=== PATIENT | female | born 1940 | race Caucasian/White ===

== ENCOUNTER 2022-10-25 14:48 | Inpatient (IN) | payer MEDICARE, SELFPAY ==
[2022-10-25 15:17] VITALS: BP 115/74; PULSE 78; RESP 16; TEMP 37; O2SAT 97; BMI 18.6
--- NOTE | 2022-10-25 16:14 | CASEMGMT ---
Social Work Met with patient to complete initial assessment. Son and DIL present and pt agreeable for them to remain. Introduced self and role. Verified/updated contacts. Discussed code status and MOLST form. Pt wishes to be full code. MOLST placed in Dr folder. Dtr to bring in copies of advanced directives. Educated to [facility] insurance and continued stay is not guaranteed with each review. Pt's goal is to return home alone at [facility]. SW to continue to follow for DC planning. Cookie Priest, CRUSHER MACHINE OPERATOR TELETYPE TECHNICIAN
[2022-10-25] MEDS: APIXABAN 2.5 MG TABLET (WCH) PO (17:41)
[2022-10-25] MEDS: Acetaminophen 500 MG Tablet 1000 MG PO ×2 (17:48→23:10)
[2022-10-25] MEDS: oxyCODONE 5 MG Tablet PO (17:49)
[2022-10-25 19:05] VITALS: PULSE 75; RESP 16; O2SAT 97
[2022-10-25] MEDS: Ipratropium/Albuterol Sulfate 3 ML AMPUL.NEB INHALATION (19:05)
--- NOTE | 2022-10-25 19:53 | HP.PCM_ITS ---
HPI - General General Date of Admission: 10/25/22 Date of Service: 10/25/22 Chief Complaint: Here for rehabilitation. HPI Narrative PATY FERRER, is a 82 Female who presents with followin10/09/2022 Trimming trees, fell off ladder, pain 10 out of 10. 10/09/2022 Admit to [facility]. CT showed T8 chance fracture, L1 incomplete burst fracture with mild bony retropulsion, Acute compression fracture of T4, T6, L2. Paraspinal hematoma. Left 1st, 4th rib fracture. Small lung contusion. CT head showed SAH. Pain control with Tylenol, Dilaudid. Consult Neurosurgery, No surgery recommended for SAH. Consult Orthopedics, No surgery recommended for spine fractures. PT/OT for debility. 10/17/2022 DVT left soleal vein, serial ultrasound ordered. Orthopedics recommended TLSO bracing, no surgery. 10/18/2022 Thrush treated with Diflucan, Nystatin, Magic Mouthwash. Walked with PT, pain controlled. 10/20/2022 Thrush resolved. Vistaril PRN anxiety. Melatonin for sleep. Lovenox 30mg sc bid for DVT prophylaxis. 10/21/2022 Pulmonary toilet. PT/OT recommended SNF. 10/25/2022 Admit to TCU with debility, here for rehabilitation, strengthening, prior to discharge home alone. [facility] Medical History (Updated 10/25/22 @ 20:[address] Eleuterio Scott MD) Closed L1 vertebral fracture Compression fracture of L2 Compression fracture of T4 vertebra Compression fracture of T6 vertebra Diverticulosis Fall Hemorrhoids Left leg DVT Lung contusion Multiple rib fractures SAH (subarachnoid hemorrhage) Home Medications mometasone 0.1 % topical ointment (Elocon) 15 g TP DAILY #1 tube 12/24/14 [Rx Last Taken Unknown] metronidazole 500 mg tablet 500 mg PO Q8 #30 tabs 05/02/16 [Rx Last Taken Unknown] acetaminophen 500 mg tablet (Tylenol Extra Strength) 500 mg PO Q6H PRN Pain 10/06/20 [History Last Taken Unknown] fexofenadine 180 mg tablet (Alia Allergy) 180 mg PO DAILY allergy 10/06/20 [History Last Taken Unknown] apixaban 2.5 mg tablet 2.5 mg PO BID blood thinner 10/25/22 [History Last Taken Unknown] cetirizine 5 mg tablet 5 mg PO DAILY allergies 10/25/22 [History Last Taken Unknown] ciprofloxacin HCl 500 mg tablet 500 mg PO BID abx 10/25/22 [History Last Taken Unknown] hydroxyzine pamoate 25 mg capsule 25 mg PO TID PRN Itching 10/25/22 [History Last Taken Unknown] ipratropium 0.5 mg-albuterol 3 mg (2.5 mg base)/3 mL nebulization soln 3 ml inhalation BID breathing 10/25/22 [History Last Taken Unknown] ipratropium 0.5 mg-albuterol 3 mg (2.5 mg base)/3 mL nebulization soln 3 ml inhalation Q12H PRN PRN breathing 10/25/22 [History Last Taken Unknown] lidocaine 4 % topical patch 1 patch topical DAILY PRN Pain 10/25/22 [History Last Taken Unknown] magnesium hydroxide 400 mg/5 mL oral suspension 5 ml PO DAILY constipation 0 10/25/22 [History Last Taken Unknown] melatonin 3 mg tablet 3 mg PO QHS sleep 10/25/22 [History Last Taken Unknown] methocarbamol 500 mg tablet 250 mg PO TID muscle spasms 10/25/22 [History Last Taken Unknown] nystatin 100,000 unit/mL oral suspension 100,000 unit PO TID thrush 10/25/22 [History Last Taken Unknown] oxycodone 5 mg capsule 5 mg PO Q4H PRN Pain 10/25/22 [History Last Taken Unknown] polyethylene glycol 3350 17 g PO/SL DAILY bowels 10/25/22 [History Last Taken Unknown] sennosides 8.6 mg tablet 17.2 mg PO BID stool softener 10/25/22 [History Last Taken Unknown] tizanidine 2 mg capsule 2 mg PO Q6H PRN PRN muscle spasms 10/25/22 [History Last Taken Unknown] white petrolatum-mineral oil 83 %-15 % eye ointment (Lubrifresh PM) eyes 10/25/22 [History Last Taken Unknown] Allergy/AdvReac Type Severity Reaction Status Date / Time aspirin [From Aggrenox] Allergy Unknown Verified 05/02/16 04:16 balsam annie Allergy NEEDS Verified 04/09/22 09:21 FOLLOW-UP cephalexin Allergy Unknown Verified 05/02/16 04:16 dipyridamole [From Aggrenox] Allergy Unknown Verified 05/02/16 04:16 estrogens,esterified Allergy Unknown Verified 05/02/16 04:16 [From Estratest] ethylenediamine Allergy Unknown Verified 05/02/16 04:16 latex Allergy Unknown Verified 05/02/16 04:16 methyltestosterone Allergy Unknown Verified 05/02/16 04:16 [From Estratest] neomycin Allergy Unknown Verified 05/02/16 04:16 omeprazole Allergy Other Verified 05/02/16 04:16 potassium Allergy Unknown Verified 05/02/16 04:16 simvastatin [From Zocor] Allergy Unknown Verified 05/02/16 04:16 spectinomycin Allergy Unknown Verified 05/02/16 04:16 streptomycin Allergy Unknown Verified 05/02/16 04:16 Sulfa (Sulfonamide Allergy NEEDS Verified 04/09/22 09:21 Antibiotics) FOLLOW-UP sulfamethoxazole Allergy Unknown Verified 05/02/16 04:16 [From Bactrim] thimerosal Allergy Unknown Verified 05/02/16 04:16 trimethoprim [From Bactrim] Allergy Unknown Verified 05/02/16 04:16 amoxicillin AdvReac Diarrhea Verified 05/02/16 04:16 TYRAMINE Allergy Unknown Uncoded 05/02/16 04:16 Surgical History (Updated 10/25/22 @ 20:[address] Eleuterio Scott MD) History of hysterectomy Social History (Updated 10/25/22 @ 20:[address] Eleuterio Scott MD) household members: none Smoking Status: Never smoker alcohol intake: never substance use type: does not use ROS Constitutional Constitutional: Denies chills, fever(s) or weight gain ENT HEENT: Denies headache(s), nasal congestion or nasal discharge Cardiovascular Cardiovascular: Denies chest pain or palpitations Respiratory/Chest Respiratory/Chest: Denies cough, excessive phlegm production or shortness of breath with exertion Gastrointestinal Gastrointestinal: Denies abdominal pain, nausea or vomiting Genitourinary Genitourinary: Denies dysuria Musculoskeletal Musculoskeletal: Denies joint pain or joint swelling Integumentary Integumentary: Denies rash or wounds Neurologic Neurologic: Denies focal weakness, numbness or tingling Psychiatric Psychiatric: Denies anxiety, auditory hallucinations, depression, homicidal ideation or suicidal ideation Vital Signs Vital Signs Vital Signs: 10/25/22 15:17 10/25/22 19:05 Temperature 98.6 F Temperature Source Temporal Pulse Rate 78 75 Respiratory Rate 16 16 Respiratory Pattern Normal Blood Pressure 115/74 Blood Pressure Mean 87 Blood Pressure Source Monitor Blood Pressure Position Supine Blood Pressure Location Right Arm Pulse Ox 97 97 Oxygen Delivery Method Room Air Room Air Weight Weight: 49.351 kg Body Mass Index (BMI) 18.6 Physical Exam Const alert General Appearance: cooperative HEENT normocephalic Eyes PERRL and EOMs intact bilaterally Neck supple, no JVD and no carotid bruits Resp normal respiratory effort, normal air movement and clear to auscultation bilate rally Cardio regular rate and regular rhythm GI normal to inspection, nondistended, normoactive bowel sounds, non-tender and non-distended Extremity normal capillary refill General Extremity: Negative for edema Skin no rashes or lesions noted General Skin Exam: no breakdown Psych affect normal Appearance: appropriate Assessment & Plan Assessment/Plan (1) Debility: (2) Fall: (3) SAH (subarachnoid hemorrhage): (4) Closed L1 vertebral fracture: (5) Compression fracture of T4 vertebra: (6) Compression fracture of T6 vertebra: (7) Compression fracture of L2: (8) Multiple rib fractures: (9) Lung contusion: (10) Left leg DVT: (11) Diverticulosis: (12) Hemorrhoids: PLAN: Plan 82 year old female with below past medical history hospitalized for SAH, multiple traumatic injuries, no surgery recommended, complicated by left lower extremity DVT, admitted to TCU with debility, here for rehabilitation, [facility], prior to discharfe home alone. * Debility - PT/OT. * Pain - Tylenol 1000mg q8, Oxycodone 5mg q4h prn pain (4-10), Lidoderm patch td daily. * Bowel - Miralax 17gm daily, Senna 2 tablets bid, MOM 30ml daily. * Adult immunization - Administer pneumonia vaccine, covid19 vaccine, flu vaccine as appropriate. * DVT prophylaxis - Eliquis 2.5mg bid. * LLE DVT - Eliquis 2.5mg bid thru 01/17/2023. * Sore throat - BMX 5ml q6h. * Anxiety - Hydroxyzine 25mg tid. * Shortness of breath - Duoneb 3ml bid. * Allergic rhinitis - Loratadine 10mg daily. * Insomnia - Melatonin 3mg qhs. * Muscle spasm - Robaxin 250mg tid, Tizanidine 2mg q6h prn. * Thrush - Nystatin 100,000 tid thru 11/07/22. * Gas - Simethicone 80mg tidpc.
[2022-10-25] MEDS: Methocarbamol 500 MG Tablet 250 MG PO (23:04)
[2022-10-25] MEDS: MELATONIN 3 MG TABLET PO (23:04)
[2022-10-26 02:55] VITALS: PULSE 86; RESP 16; O2SAT 93
[2022-10-26] MEDS: Loratadine 10 MG Tablet PO (04:54)
[2022-10-26] MEDS: Lidocaine 5% Patch 1 PATCH TOPICAL (04:54)
[2022-10-26] MEDS: Methocarbamol 500 MG Tablet 250 MG PO ×2 (04:54→13:09)
[2022-10-26] MEDS: APIXABAN 2.5 MG TABLET (WCH) PO ×2 (04:54→17:31)
[2022-10-26] MEDS: Acetaminophen 500 MG Tablet 1000 MG PO ×3 (04:55→21:21)
[2022-10-26 06:32] VITALS: PULSE 77; RESP 16
[2022-10-26 08:07] LABS: Absolute Lymphocyte Count 1.12 X10^3/uL (0.83-4.51); Basophil# 0.04 X10^3/uL; Basophil% 0.7 % (0-1); Eosinophil# 0.07 X10^3/uL; Eosinophils% 1.2 % (0-5); Hematocrit 37.5 % (37-47); Hemoglobin 11.9 g/dL (12.0-15.0); Lymphocyte # 1.12 X10^3/ul (0.83-4.51); Lymphocyte % 19.4 % (19-41); Mean Corp Hgb Conc 31.7 g/dL (32-36); Mean Corpuscular Volume 94.5 fL (81-99); Mean Platelet Vol. 11.1 fl (6.2-12.0); Monocyte# 0.54 X10^3/uL; Monocyte% 9.4 % (0-10); NRBC Flagged by Analyzer 0 % (0-5); Neutrophil # 3.97 X10^3/uL (2.7-7.7); Platelet Count 417 K/mm3 (150-450); RBC Distribution Width CV 13.5 % (11.6-14.6); RBC Distribution Width SD 46.8 fl (35.1-43.9); Red Blood Count 3.97 M/mm3 (4.2-5.4); White Blood Count 5.8 K/mm3 (4.4-11.0)
[2022-10-26 08:15] LABS: Anion Gap 6 (5-15); BUN 13 mg/dL (7-18); BUN/Creat Ratio 18.5 RATIO (10-20); Calcium,Total 8.9 mg/dL (8.5-10.1); Chloride 103 mmol/L (98-107); EST Glomerular Filtration Rate 85 mL/min (>60); Est Glom Filt Rate - Afr Amer 102 mL/min (>60); Estimated Creatinine Clearance 32.63 ml/min; Glucose 107 mg/dL (74-106); Potassium 3.7 mmol/L (3.5-5.1); Sodium Level 137 mmol/L (136-145)
--- NOTE | 2022-10-26 10:52 | NURSING ---
Pt has self transferred to the bathroom multiple times, without back brace. Education provided to patient by staff. Dr. Scott called, order for bed/chair alarm. Order read back, RN aware.
[2022-10-26] MEDS: Tuberculin,Purif.prot.deriv. 50 TU/ML Vial 0.1 ML ID (13:10)
[2022-10-26 15:50] VITALS: BP 125/49; PULSE 77; RESP 18; TEMP 36.4; O2SAT 93
[2022-10-26 21:30] VITALS: PULSE 90; RESP 16; O2SAT 95
[2022-10-27] MEDS: oxyCODONE 5 MG Tablet PO ×3 (02:13→19:40)
[2022-10-27] MEDS: APIXABAN 2.5 MG TABLET (WCH) PO ×2 (06:44→17:16)
[2022-10-27] MEDS: Loratadine 10 MG Tablet PO (06:44)
[2022-10-27] MEDS: Lidocaine 5% Patch 1 PATCH TOPICAL (06:44)
[2022-10-27] MEDS: Methocarbamol 500 MG Tablet 250 MG PO ×3 (06:45→21:34)
[2022-10-27] MEDS: Acetaminophen 500 MG Tablet 1000 MG PO ×2 (06:49→13:44)
--- NOTE | 2022-10-27 08:37 | NURSING ---
Pt assisted into recliner by staff, pt took off back brace. Educated on purpose of brace and importance of use, pt stated I know what I am doing, do not talk to me like a child, refused to keep brace on.
[2022-10-27 09:28] VITALS: PULSE 84; RESP 18; O2SAT 93
[2022-10-27 14:02] VITALS: BP 136/49; PULSE 78; RESP 19; TEMP 36.2; O2SAT 94
[2022-10-27 18:56] VITALS: PULSE 80; RESP 16; O2SAT 98
[2022-10-27] MEDS: Ipratropium/Albuterol Sulfate 3 ML AMPUL.NEB INHALATION (18:56)
--- NOTE | 2022-10-27 21:14 | NURSING ---
Noted request on clipboard for something to protect pt's stomach lining. Spoke w/ pt and primary concern is gas. Currently has an order for medication for gas relief which she notes has been effective. Denies any concerns w/ acid reflux and/or indigestion. Does not taker medication at home for reflux or indigestion, only Gas-X before and after each meal. Instructed pt if she is experiencing onset of acid reflux, heartburn, and/or indigestion to notify staff. She verbalizes understanding.
[2022-10-27] MEDS: MELATONIN 3 MG TABLET PO (21:34)
--- NOTE | 2022-10-27 22:28 | NURSING ---
Pt continues to refuse oral medications due to feeling nauseous and having difficulty swallowing them. This nurse offered to crush medications in applesauce and she accepted but still declined 2200 Tylenol dose. Pt showing s/sx of anxiety and becomes frustrated with staff often. 1:1 redirection, education, emotional support and explaining how the unit operates given. Interventions effective for short period of time only.
[2022-10-28] MEDS: oxyCODONE 5 MG Tablet PO ×5 (00:19→22:19)
[2022-10-28] MEDS: Methocarbamol 500 MG Tablet 250 MG PO ×3 (05:25→22:10)
[2022-10-28] MEDS: Loratadine 10 MG Tablet PO (05:25)
[2022-10-28] MEDS: APIXABAN 2.5 MG TABLET (WCH) PO ×2 (05:25→18:15)
[2022-10-28] MEDS: Lidocaine 5% Patch 1 PATCH TOPICAL (05:26)
[2022-10-28] MEDS: Acetaminophen 500 MG Tablet 1000 MG PO ×3 (05:30→22:09)
[2022-10-28 06:41] VITALS: PULSE 71; RESP 18
[2022-10-28] MEDS: Ipratropium/Albuterol Sulfate 3 ML AMPUL.NEB INHALATION ×2 (06:41→19:46)
--- NOTE | 2022-10-28 11:02 | PHA.CONS_ITS ---
TCU RX Drug Regimen Review Subjective: TCU Admission. 82 YOF presented to outside ER and hospitalized for SAH, multiple traumatic injuries, no surgery recommended, complicated by left lower extremity DVT. Admitted to TCU with debility for strengthening and rehabilitation. Objective: Allergies aspirin [From Aggrenox] Allergy (Verified 05/02/16 04:16) Unknown balsam annie Allergy (Verified 04/09/22 09:21) NEEDS FOLLOW-UP cephalexin Allergy (Verified 05/02/16 04:16) Unknown dipyridamole [From Aggrenox] Allergy (Verified 05/02/16 04:16) Unknown estrogens,esterified [From Estratest] Allergy (Verified 05/02/16 04:16) Unknown ethylenediamine Allergy (Verified 05/02/16 04:16) Unknown latex Allergy (Verified 05/02/16 04:16) Unknown methyltestosterone [From Estratest] Allergy (Verified 05/02/16 04:16) Unknown neomycin Allergy (Verified 05/02/16 04:16) Unknown omeprazole Allergy (Verified 05/02/16 04:16) Other potassium Allergy (Verified 05/02/16 04:16) Unknown simvastatin [From Zocor] Allergy (Verified 05/02/16 04:16) Unknown spectinomycin Allergy (Verified 05/02/16 04:16) Unknown streptomycin Allergy (Verified 05/02/16 04:16) Unknown Sulfa (Sulfonamide Antibiotics) Allergy (Verified 04/09/22 09:21) NEEDS FOLLOW-UP sulfamethoxazole [From Bactrim] Allergy (Verified 05/02/16 04:16) Unknown thimerosal Allergy (Verified 05/02/16 04:16) Unknown trimethoprim [From Bactrim] Allergy (Verified 05/02/16 04:16) Unknown amoxicillin Adverse Reaction (Verified 05/02/16 04:16) Diarrhea TYRAMINE Allergy (Uncoded 05/02/16 04:16) Unknown Current Medications Generic Name Dose Route Start Last Admin Trade Name Freq PRN Reason Stop Dose Admin Acetaminophen 1,000 mg 10/25/22 22:00 10/28/22 05:30 Acetaminophen 500 Mg Tablet PO 1,000 mg Q8 LILLIE Administration Albuterol/Ipratropium 3 ml 10/25/22 18:15 10/28/22 06:41 Ipratropium/Albuterol Sulfate 3 Ml Ampul.Neb INHALATION 3 ml BID.RT LILLIE Administration Apixaban 2.5 mg 10/25/22 18:00 10/28/22 05:25 Apixaban 2.5 Mg Tablet ([facility]) PO 2.5 mg BID LILLIE Administration Hydroxyzine Pamoate 25 mg 10/25/22 15:48 Hydroxyzine Beth 25 Mg Capsule PO TID PRN Itching Lidocaine 1 patch 10/26/22 06:00 10/28/22 05:26 Lidocaine 5% Patch TOPICAL 1 patch DAILY LILLIE Administration Lidocaine/Diphenhydr/Alum/Mg/Simeth 5 ml 10/25/22 16:03 Bmx Liquid 180 Ml PO Q6 PRN irritation Loratadine 10 mg 10/26/22 06:00 10/28/22 05:25 Loratadine 10 Mg Tablet PO 10 mg DAILY LILLIE Administration Magnesium Hydroxide 30 ml 10/26/22 06:00 10/28/22 05:23 Magnesium Hydroxide 30 Ml Udc PO Not Given DAILY LILLIE Melatonin 3 mg 10/25/22 22:00 10/27/22 21:34 Melatonin 3 Mg Tablet PO 3 mg QHS LILLIE Administration Methocarbamol 250 mg 10/25/22 22:00 10/28/22 05:25 Methocarbamol 500 Mg Tablet PO 250 mg TID LILLIE Administration Oxycodone HCl 5 mg 10/25/22 20:04 10/28/22 10:09 Oxycodone 5 Mg Tablet PO 5 mg Q4H PRN Administration Pain Score 4-10 Polyethylene Glycol 17 gm 10/26/22 06:00 10/28/22 05:23 Polyethylene Glycol 3350 17 Gm Packet PO Not Given DAILY [facility] Senna 2 tablet 10/25/22 18:00 10/28/22 05:23 Senna Tablet PO Not Given BID LILLIE Simethicone 80 mg 10/27/22 16:24 10/28/22 05:30 Simethicone 80 Mg Tablet PO 80 mg PCHS PRN Administration Gas Tizanidine HCl 2 mg 10/25/22 15:48 Tizanidine Hcl 2 Mg Tablet PO Q6H PRN PRN muscle spasms Tuberculin PPD 0.1 ml 11/02/22 10:00 Tuberculin,Purif.Prot.Deriv. 50 Tu/Ml Vial ID 11/02/22 10:01 X1 ONE Problem List (Last Updated 10/25/22 @ 20:[address] Eleuterio Scott MD) Hemorrhoids (Acute) Diverticulosis (Acute) Left leg DVT (Acute) Lung contusion (Acute) Multiple rib fractures (Acute) Compression fracture of L2 (Acute) Compression fracture of T6 vertebra (Acute) Compression fracture of T4 vertebra (Acute) Closed L1 vertebral fracture (Acute) SAH (subarachnoid hemorrhage) (Acute) Fall (Acute) Debility (Acute) Vital Signs Temp Pulse Resp BP Pulse Ox O2 Del Method 97.1 F L 71 18 136/49 H 98 Room Air 10/27/22 14:02 10/28/22 06:41 10/28/22 06:41 10/27/22 14:02 10/27/22 18:56 10/27/22 18:56 Oxygen Delivery Method Room Air Weight: 49.351 kg Body Mass Index (BMI) 18.6 Sodium 137 mmol/L (136-145) 10/26/22 07:35 Potassium 3.7 mmol/L (3.5-5.1) 10/26/22 07:35 Chloride 103 mmol/L (98-107) 10/26/22 07:35 Carbon Dioxide 28.0 mmol/L (21.0-32.0) 10/26/22 07:35 Anion Gap 6 (5-15) 10/26/22 07:35 BUN 13 mg/dL (7-18) 10/26/22 07:35 Creatinine 0.70 mg/dL (0.55-1.02) 10/26/22 07:35 Est GFR (MDRD) Af Amer 102 mL/min (>60) 10/26/22 07:35 Est GFR (MDRD) Non-Af 85 mL/min (>60) 10/26/22 07:35 BUN/Creatinine Ratio 18.5 RATIO (10-20) 10/26/22 07:35 Glucose 107 mg/dL (74-106) H 10/26/22 07:35 Assessment/Plan: 1. Pain: acetaminophen 1000mg PO Q8, lidocaine 5% patch topical daily and oxycodone 5mg PO Q4H PRN pain 4-10. Resident has had 5 doses of oxycodone for pain score of 4-5/8-9 in the back. Please continue to monitor for increased pain, PRN usage, constipation, rash, and respiratory depression. 2. Bowel: Miralax 17gm PO daily, senna 2T PO BID and MOM 30ML PO daily. Resident has refused all doses of all bowel medications. Please consider changing to PRN constipation if clinically appropriate. Thanks. No documented bowel movements. 3. LLE DVT/DVT prophylaxis: apixaban 2.5mg PO BID thru 01/17/23. Decreased dose is not appropriate as this dosing should only be used for A fib, not for treatment of VTE. Please consider changing dose to 5mg PO BID to appropriately treat DVT. Also, please consider adding a stop date. Thanks. Please continue to monitor for S/S of bleeding/DVT and hemoglobin (last 11.9g/dL). 4. Muscle spasm: methocarbamol 250mg PO TID and tizanidine 2mg PO Q6H PRN muscle spasm. Please continue to monitor for anticholinergic side effects (BEERs medication), drowsiness, confusion and PRN usage. Resident has not had any PRN doses. 5. Gas: simethicone 80mg PO PCHS PRN gas. Resident has used 2 PRN doses. Please continue to monitor for PRN usage. 6. Sore throat: BMX solution 5mL PO PRN irritation. Resident has not used any PRN doses. Please continue to monitor for sore throat and PRN usage. 7. Shortness of breath: Duoneb 3mL inhalation BID.RT. Please continue to monitor HR (last 71) and shortness of breath. 8. Allergic rhinitis: loratadine 10mg PO daily. Please continue to monitor for S/S of allergies, headache and dry mouth. 9. Insomnia: melatonin 3mg PO QHS. Please continue to monitor for insomnia and excessive drowsiness. Assessment/Plan for indications treated with psychotropic medications: 1. Itching: hydroxyzine 25mg PO TID PRN itching. GDR not appropriate as this medication is being used for itching. Resident has not used any PRN doses. Please continue to monitor for itching and PRN usage. Medical chart and medication regimen reviewed. The following medication irregularities or issues were identified: *1. Miralax 17gm PO daily, senna 2T PO BID and MOM 30ML PO daily. Resident has refused all doses of all bowel medications. Please consider changing to PRN constipation if clinically appropriate. Thanks. *2. Apixaban 2.5mg PO BID thru 01/17/23. Decreased dose is not appropriate as this dosing should only be used for A fib, not for treatment of VTE. Please consider changing dose to 5mg PO BID to appropriately treat DVT. Also, please consider adding a stop date. Thanks. Date of Note:: 10/28/22
--- NOTE | 2022-10-28 11:58 | NURSING ---
Airport Baggage Screener Note: Activity Asset: Harlan Bacon is independent in her choice of daily activities. She stated her family visit w/the grandkids and she enjoys seeing them all. She has a few books she will read and never was big on word puzzles. [facility] will come and visit w/her and she welcomes visit from the Refrigeration Unit Repairer and therapy dog. Arleen has a smartphone she use to talk w/her family and friends as well.
[2022-10-28 14:04] VITALS: BP 123/63; PULSE 75; RESP 16; TEMP 36.1; O2SAT 95
[2022-10-28] MEDS: Senna Tablet 2 TABLET PO (18:15)
[2022-10-28 19:46] VITALS: PULSE 83; RESP 18
[2022-10-28] MEDS: MELATONIN 3 MG TABLET PO (22:10)
[2022-10-28 22:20] VITALS: O2SAT 95
[2022-10-29] MEDS: Loratadine 10 MG Tablet PO (05:53)
[2022-10-29] MEDS: Methocarbamol 500 MG Tablet 250 MG PO ×3 (05:53→21:17)
[2022-10-29] MEDS: APIXABAN 2.5 MG TABLET (WCH) PO ×2 (05:53→17:28)
[2022-10-29] MEDS: Lidocaine 5% Patch 1 PATCH TOPICAL (05:54)
[2022-10-29] MEDS: oxyCODONE 5 MG Tablet PO ×4 (05:54→21:30)
[2022-10-29] MEDS: Ipratropium/Albuterol Sulfate 3 ML AMPUL.NEB INHALATION ×2 (07:23→18:50)
[2022-10-29 07:25] VITALS: PULSE 71; RESP 18; O2SAT 95
[2022-10-29] MEDS: Acetaminophen 500 MG Tablet 1000 MG PO ×2 (13:54→21:21)
[2022-10-29 14:44] VITALS: BP 118/55; PULSE 82; RESP 16; TEMP 36.6; O2SAT 94
[2022-10-29 15:06] VITALS: BMI 18.3
[2022-10-29 18:50] VITALS: PULSE 78; RESP 16; O2SAT 95
[2022-10-29] MEDS: MELATONIN 3 MG TABLET PO (21:17)
[2022-10-30] MEDS: oxyCODONE 5 MG Tablet PO ×3 (02:39→19:07)
[2022-10-30] MEDS: APIXABAN 2.5 MG TABLET (WCH) PO ×2 (06:33→17:38)
[2022-10-30] MEDS: Methocarbamol 500 MG Tablet 250 MG PO (06:34)
[2022-10-30] MEDS: Loratadine 10 MG Tablet PO (06:34)
[2022-10-30] MEDS: Acetaminophen 500 MG Tablet 1000 MG PO ×3 (06:35→19:08)
[2022-10-30 07:13] VITALS: PULSE 77; RESP 16; O2SAT 97
[2022-10-30] MEDS: Ipratropium/Albuterol Sulfate 3 ML AMPUL.NEB INHALATION ×2 (07:13→20:17)
--- NOTE | 2022-10-30 13:14 | CASEMGMT ---
Social Work IDT met with patient, son, brother, two dtrs and JIM, then dtr in [place] via conference call for care plan meeting. Discussed patient's progress in PT/OT/SN. ST DC'd from caseload 10/29 - no further swallowing concerns. Educated to [facility] insurance with NRD 10/28 and have not received outcome yet. Continued stay is not guaranteed with each review. Pt's goal is to return home alone with 2 MEGHAN. Discussed DME needs and insurance coverage. Offered medical alert and grab bar resources - provided to family. Inquired if family can transport pt to [facility] appts during TCU stay. Family can transport. Pt is able to get in and out of car. Answered families questions. SW to continue to follow for DC planning. QUANG MccannW
[2022-10-30 15:30] VITALS: BP 143/47; PULSE 77; RESP 12; TEMP 36.6; O2SAT 95
--- NOTE | 2022-10-30 15:35 | CHAPLAIN ---
Type of Pastoral Visit _x__ Initial Visit ___ Follow-up Visit ___ On-call Visit ___ General Patient Visit ___ Spiritual Assessment ___ Family Conference ___ Bereavement ___ Rapid Response ___ Code Blue ___ Other (describe below) Pastoral Care Referral From _x__ Patient ___ Family ___ Nurse ___ Physician ___ Tray Line Worker ___ Beam Racker ___ Other (describe below) Sacrament/Intervention ___ Active listening ___ Anointing ___ Confucianism ___ Bereavement ___ Communion ___ Tammy exploration ___ ___ Life review _x__ Prayer ___ Reconciliation ___ Sacrament of Sick _x__ Supportive presence ___ Wedding ___ Other (describe below) Pastoral Comments entered room and found patient with two daughters, son, and a son-in-law in room with her; introduced self and role; pt welcomes support and asks for a prayer at this time; visit is brief due to family present and offer of return on another date accepted
[2022-10-30] MEDS: Senna Tablet 2 TABLET PO (17:37)
[2022-10-30 19:00] VITALS: O2SAT 96
[2022-10-30] MEDS: MELATONIN 3 MG TABLET PO (19:08)
--- NOTE | 2022-10-30 19:13 | NURSING ---
Pt requested to have HS meds at this time as she wants to go to sleep for the night.
[2022-10-30 20:21] VITALS: PULSE 78; RESP 16; O2SAT 97
[2022-10-31] MEDS: oxyCODONE 5 MG Tablet PO ×3 (02:57→14:30)
[2022-10-31] MEDS: Acetaminophen 500 MG Tablet 1000 MG PO ×3 (05:38→20:56)
[2022-10-31] MEDS: APIXABAN 2.5 MG TABLET (WCH) PO ×2 (05:39→17:39)
[2022-10-31] MEDS: Senna Tablet 2 TABLET PO ×2 (05:39→17:39)
[2022-10-31] MEDS: Polyethylene Glycol 3350 17 GM PACKET PO (05:41)
[2022-10-31] MEDS: Loratadine 10 MG Tablet PO (05:42)
[2022-10-31] MEDS: Lidocaine 5% Patch 1 PATCH TOPICAL (05:43)
--- NOTE | 2022-10-31 09:35 | NURSING ---
Called insurance company, per them they can't change authorization to have CT scan done at this facility unless ordering provider or the family has it changed. Updated patient and daughter Era. Era said that she will call and work on trying to get approval for CT to be done at [facility].
--- NOTE | 2022-10-31 10:52 | NURSING ---
pt up in chair and refusing to wear lumbar brace even when gets up to amb now stating, that thing is hurting me more with it on. last night was so tight and hurt my ribs and pt guarding lt rib area. stated, they talked about a diff brace that would order for me here becky rn in and will talk to son about and see when f/u is.
--- NOTE | 2022-10-31 11:16 | CASEMGMT ---
Social Work BIMS () and PHQ-9 (07/08) completed for MDS assessment. SW notified pt and son, Bill, via FaceTime, in room that insurance requested another review 11/01, anticipating earliest DC 11/04. Son and pt expressed understanding. Cookie Priest, DIRECTOR OF COLLECTIONS AND ARCHIVES FOREST FIRE FIGHTERS DISPATCHER
--- NOTE | 2022-10-31 13:57 | MDS.RN ---
Pain interview for MDS vandana 11/01/22 completed.
[2022-10-31 14:58] VITALS: BP 150/57; PULSE 75; RESP 16; TEMP 36.4; O2SAT 96
[2022-10-31 19:15] VITALS: PULSE 80; RESP 16
[2022-10-31] MEDS: Ipratropium/Albuterol Sulfate 3 ML AMPUL.NEB INHALATION (19:15)
[2022-10-31] MEDS: MELATONIN 3 MG TABLET PO (20:54)
[2022-10-31 21:02] VITALS: PULSE 78; RESP 14; O2SAT 96
[2022-11-01] MEDS: oxyCODONE 5 MG Tablet PO ×3 (03:30→23:58)
[2022-11-01] MEDS: Acetaminophen 500 MG Tablet 1000 MG PO ×3 (05:27→21:14)
[2022-11-01] MEDS: Polyethylene Glycol 3350 17 GM PACKET PO (05:27)
[2022-11-01] MEDS: Senna Tablet 2 TABLET PO (05:28)
[2022-11-01] MEDS: Lidocaine 5% Patch 1 PATCH TOPICAL (05:28)
[2022-11-01] MEDS: APIXABAN 2.5 MG TABLET (WCH) PO ×2 (05:29→17:19)
[2022-11-01] MEDS: Loratadine 10 MG Tablet PO (05:29)
[2022-11-01 06:34] VITALS: PULSE 74; RESP 17; O2SAT 93
[2022-11-01] MEDS: Ipratropium/Albuterol Sulfate 3 ML AMPUL.NEB INHALATION ×2 (06:34→19:30)
[2022-11-01 09:42] VITALS: PULSE 86; O2SAT 93
[2022-11-01 14:45] VITALS: BP 130/80; PULSE 75; RESP 17; TEMP 35.8; O2SAT 97
--- NOTE | 2022-11-01 15:44 | CASEMGMT ---
Addendum entered by Cookie Pirest 11/01/22 15:56: SW received outcome from insurance with LCD 11/03, DC 11/04. SW updated [employer]. SW spoke with pt and family and asked for HHC choices. Pt prefers [facility]. SW phoned referral for PT/OT. Family to transport. Plan: DC home 11/04, [facility] Original Note: Social Work SW spoke with pt and family in room. No outcome from insurance at this time. SW provided skilled HHC list with quality and resource data via [employer]Port Guide to dtr and son to review. Inquired about DME needs. Pt ahs [facility] at [facility] but inquiring about hospital bed. SW reviewed pt's dx and pt does not qualify. Offered for pt to pay privately and family agreeable. SW sent referral to [facility]. Family appreciative. SW to continue to follow. Cookie Priest, QUANG CALVERTW
[2022-11-01 19:30] VITALS: PULSE 78; RESP 16
--- NOTE | 2022-11-01 19:53 | PCM.DC.SUM ---
Providers Date of Admission: 10/25/22 Primary Care Physician: Dr. Farnnie Butcher MD Consultations 10/30/22 17:28 Consult: Pain Management Routine Consulting Provider: Stan Martell Reason for Consult: Chronic pain. EMERGENT Consult: No MD Notified: Yes Date Notified: 10/31/22 Time Notified: 11:16 Method of Notification: phone Comments:: notified office staff Reason For Visit: FALL, SAH, MULTIPLE FRACTURES Diagnosis Discharge Diagnosis (1) Debility: Status: Acute Code(s): R53.81 - Other malaise (2) Fall: Status: Acute Code(s): W19.XXXA - Unspecified fall, initial encounter (3) SAH (subarachnoid hemorrhage): Status: Acute Code(s): I60.9 - Nontraumatic subarachnoid hemorrhage, unspecified (4) Closed L1 vertebral fracture: Status: Acute Code(s): S32.019A - Unspecified fracture of first lumbar vertebra, initial encounter for closed fracture (5) Compression fracture of T4 vertebra: Status: Acute Code(s): S22.040A - Wedge compression fracture of fourth thoracic vertebra, initial encounter for closed fracture (6) Compression fracture of T6 vertebra: Status: Acute Code(s): S22.050A - Wedge compression fracture of T5-T6 vertebra, initial encounter for closed fracture (7) Compression fracture of L2: Status: Acute Code(s): S32.020A - Wedge compression fracture of second lumbar vertebra, initial encounter for closed fracture (8) Multiple rib fractures: Status: Acute Code(s): S22.49XA - Multiple fractures of ribs, unspecified side, initial encounter for closed fracture (9) Lung contusion: Status: Acute Code(s): S27.329A - Contusion of lung, unspecified, initial encounter (10) Left leg DVT: Status: Acute Code(s): I82.402 - Acute embolism and thrombosis of unspecified deep veins of left lower extremity (11) Diverticulosis: Status: Acute Code(s): K57.90 - Diverticulosis of intestine, part unspecified, without perforation or abscess without bleeding (12) Hemorrhoids: Status: Acute Code(s): K64.9 - Unspecified hemorrhoids Plan 82 year old female with below past medical history hospitalized for SAH, multiple traumatic injuries, no surgery recommended, complicated by left lower extremity DVT, admitted to TCU with debility, here for rehabilitation, strengthening, prior to discharfe home alone. Debility - PT/OT. Pain - Tylenol 1000mg q8, Oxycodone 5mg q4h prn pain (4-10), Lidoderm patch td daily. Bowel - Miralax 17gm daily, Senna 2 tablets bid, MOM 30ml daily. Adult immunization - Administer pneumonia vaccine, covid19 vaccine, flu vaccine as appropriate. DVT prophylaxis - Eliquis 2.5mg bid. LLE DVT - Eliquis 2.5mg bid thru 01/17/2023. Sore throat - BMX 5ml q6h. Anxiety - Hydroxyzine 25mg tid. Shortness of breath - Duoneb 3ml bid. Allergic rhinitis - Loratadine 10mg daily. Insomnia - Melatonin 3mg qhs. Muscle spasm - Robaxin 250mg tid, Tizanidine 2mg q6h prn. Thrush - Nystatin 100,000 tid thru 11/07/22. Gas - Simethicone 80mg tidpc. Medications at Discharge Home Medications cetirizine 5 mg tablet 5 mg PO DAILY allergies 10/25/22 melatonin 3 mg tablet 3 mg PO QHS sleep 10/25/22 polyethylene glycol 3350 17 g PO/SL DAILY bowels 10/25/22 acetaminophen 500 mg tablet 1,000 mg PO Q8 #0 tabs 11/01/22 apixaban 5 mg tablet (Eliquis) 2.5 mg PO BID 30 days #30 tabs 11/01/22 lidocaine 5 % topical patch 1 patch topical DAILY 30 days #30 ea 11/01/22 oxycodone 5 mg tablet 5 mg PO Q4H PRN Pain Score 4-10 7 days #42 tabs 11/01/22 sennosides 8.6 mg tablet (senna) 2 tab PO BID 30 days #120 tabs 11/01/22 simethicone 80 mg chewable tablet 80 mg PO PCHS PRN Gas 30 days #120 tabs 11/01/22 Hospital Course Operations None Procedures None Summary of Care Provided Minutes Spent on Discharge: 35 Hospital Course: 82 year old female with below past medical history hospitalized for SAH, multiple traumatic injuries, no surgery recommended, complicated by left lower extremity DVT, admitted to TCU with debility, here for rehabilitation, strengthening, prior to discharge home alone. Treat left lower extremity DVT with Eliquis 2.5mg twice daily thru 01/17/2023. Discharge home alone 11/04/2022, [facility] PT/OT, Hospital Bed. Physical Exam Const alert General Appearance: cooperative HEENT normocephalic Eyes PERRL and EOMs intact bilaterally Neck supple, no JVD and no carotid bruits Resp normal respiratory effort, normal air movement and clear to auscultation bilaterally Cardio regular rate and regular rhythm GI normal to inspection, nondistended, normoactive bowel sounds, non-tender and non-distended Extremity normal capillary refill General Extremity: Negative for edema Skin no rashes or lesions noted General Skin Exam: no breakdown Psych affect normal Appearance: appropriate Weight / BMI Weight Weight: 48.716 kg Body Mass Index (BMI) 18.3 ABG / Lab / Microbiology Data Result Diagrams: 10/26/22 07:35 10/26/22 07:35 D/C Instructions Discharge Diet: No restrictions Discharge Activity: Return to Normal Activity, May Shower and Use Walker Weight Bearing Status: Weight bearing as tolerated Call your doctor if you observe: Fever of 101 or Higher, Inability to urinate, Inability to have a bowel movement, Shortness of breath, Dizziness, Fainting spells, Swelling in the ankles, Chest pain and Uncontrolled pain Additional Instructions: Discharge home alone 11/04/2022, [facility] PT/OT, Hospital Bed. Please Follow Up With: Head CT w/o contrast When: As scheduled. Meaningful Use Info Meaningful Use Diagnoses (Choose all that apply): Hemorrhagic CVA CVA Therapy Assessed for PT,OT and/or ST?: Yes Discharge Plan Admission Admit Date/Time: 10/25/22 14:48 Primary Reason for Your Visit: Debility. Attending Provider: Eleuterio Scott Chi Primary Care Provider: Frannie Butcher Consulting Providers: Stan Martell Instructions Additional Instructions / Restrictions: Discharge home alone 11/04/2022, [facility] PT/OT, Hospital Bed. Discharge Orders/Prescriptions Prescriptions: New sennosides [senna] 8.6 mg Tablet 2 tab PO BID 30 Days Qty: 120 0RF acetaminophen 500 mg Tablet 1,000 mg PO Q8 Qty: 0 0RF lidocaine 5 % Adhesive Patch,Medicated 1 patch topical DAILY 30 Days Qty: 30 0RF simethicone 80 mg Tablet,Chewable 80 mg PO PCHS PRN (Reason: Gas) 30 Days Qty: 120 0RF oxycodone 5 mg Tablet 5 mg PO Q4H PRN (Reason: Pain Score 4-10) 7 Days Qty: 42 0RF Eliquis 5 mg Tablet 2.5 mg PO BID 30 Days Qty: 30 0RF Continued cetirizine 5 mg Tablet 5 mg PO DAILY melatonin 3 mg Tablet 3 mg PO QHS polyethylene glycol 3350 17 g PO/SL DAILY Discontinued acetaminophen [Tylenol Extra Strength] 500 mg tablet 500 mg PO Q6H PRN (Reason: Pain) fexofenadine [Alia Allergy] 180 mg tablet 180 mg PO DAILY mometasone [Elocon] 45 GM ointment 15 g TP DAILY Qty: 1 0RF metronidazole 500 MG tablet 500 mg PO Q8 Qty: 30 0RF ipratropium-albuterol 0.5 mg-3 mg(2.5 mg base)/3 mL Solution For Nebulization 3 ml INHALATION BID ipratropium-albuterol 0.5 mg-3 mg(2.5 mg base)/3 mL Solution For Nebulization 3 ml INHALATION Q12H PRN PRN (Reason: breathing) hydroxyzine pamoate 25 mg Capsule 25 mg PO TID PRN (Reason: Itching) apixaban 2.5 mg Tablet 2.5 mg PO BID methocarbamol 500 mg Tablet 250 mg PO TID nystatin 100,000 unit/mL Suspension 100,000 unit PO TID Rx Instructions: administer 1/2 of dose in each side of the mouth lidocaine 4 % Adhesive Patch,Medicated 1 patch TOPICAL DAILY PRN (Reason: Pain) magnesium hydroxide 400 mg/5 mL Suspension 5 ml PO DAILY Lubrifresh PM 83-15 % Ointment sennosides 8.6 mg Tablet 17.2 mg PO BID oxycodone 5 mg Capsule 5 mg PO Q4H PRN (Reason: Pain) tizanidine 2 mg Capsule 2 mg PO Q6H PRN PRN (Reason: muscle spasms) ciprofloxacin HCl 500 MG tablet 500 mg PO BID Referrals / Follow Up: Frannie Butcher MD [Primary Care Provider] - Disposition Disposition (needs filled in before D/C Order can be placed): Home Health Service
[2022-11-01] MEDS: MELATONIN 3 MG TABLET PO (21:15)
[2022-11-02] MEDS: Lidocaine 5% Patch 1 PATCH TOPICAL (05:19)
[2022-11-02] MEDS: APIXABAN 2.5 MG TABLET (WCH) PO ×2 (05:20→16:46)
[2022-11-02] MEDS: Loratadine 10 MG Tablet PO (05:20)
[2022-11-02] MEDS: oxyCODONE 5 MG Tablet PO (05:27)
[2022-11-02] MEDS: Acetaminophen 500 MG Tablet 1000 MG PO ×3 (05:28→20:34)
[2022-11-02 06:42] LABS: Absolute Lymphocyte Count 1.58 X10^3/uL (0.83-4.51); Absolute Neutrophil Count 2.5 X10^3/uL (2.0-7.7); Basophil# 0.04 X10^3/uL; Basophil% 0.8 % (0-1); Eosinophil# 0.12 X10^3/uL; Eosinophils% 2.5 % (0-5); Hematocrit 41.6 % (37-47); Hemoglobin 12.9 g/dL (12.0-15.0); Lymphocyte # 1.58 X10^3/ul (0.83-4.51); Lymphocyte % 33.2 % (19-41); Mean Corpuscular Hgb 29.3 pg (27.0-32.0); Mean Corpuscular Volume 94.5 fL (81-99); Mean Platelet Vol. 11.7 fl (6.2-12.0); Monocyte% 10.5 % (0-10); NRBC Flagged by Analyzer 0 % (0-5); Neutrophil # 2.52 X10^3/uL (2.7-7.7); Platelet Count 320 K/mm3 (150-450); RBC Distribution Width CV 14.1 % (11.6-14.6); RBC Distribution Width SD 48.9 fl (35.1-43.9); White Blood Count 4.8 K/mm3 (4.4-11.0)
[2022-11-02 07:18] LABS: Anion Gap 7 (5-15); BUN 11 mg/dL (7-18); BUN/Creat Ratio 19.1 RATIO (10-20); Chloride 106 mmol/L (98-107); Creatinine, Serum 0.58 mg/dL (0.55-1.02); EST Glomerular Filtration Rate 106 mL/min (>60); Est Glom Filt Rate - Afr Amer 128 mL/min (>60); Estimated Creatinine Clearance 32.21 ml/min; Glucose 96 mg/dL (74-106); Potassium 4.1 mmol/L (3.5-5.1); Sodium Level 141 mmol/L (136-145)
[2022-11-02] MEDS: Tuberculin,Purif.prot.deriv. 50 TU/ML Vial 0.1 ML ID (13:49)
[2022-11-02 16:00] VITALS: BP 125/47; PULSE 70; RESP 16; TEMP 36.6; O2SAT 95
[2022-11-02] MEDS: Ipratropium/Albuterol Sulfate 3 ML AMPUL.NEB INHALATION (20:01)
[2022-11-02 20:25] VITALS: O2SAT 95
[2022-11-02] MEDS: MELATONIN 3 MG TABLET PO (20:35)
[2022-11-03] MEDS: Acetaminophen 500 MG Tablet 1000 MG PO ×3 (04:19→21:48)
[2022-11-03] MEDS: Loratadine 10 MG Tablet PO (04:19)
[2022-11-03] MEDS: APIXABAN 2.5 MG TABLET (WCH) PO ×2 (04:19→18:14)
[2022-11-03] MEDS: Lidocaine 5% Patch 1 PATCH TOPICAL (04:20)
[2022-11-03] MEDS: oxyCODONE 5 MG Tablet PO ×2 (04:24→13:09)
[2022-11-03 07:36] VITALS: PULSE 70; RESP 18; O2SAT 93
[2022-11-03 15:20] VITALS: BP 113/72; PULSE 69; RESP 16; TEMP 36.8; O2SAT 98
[2022-11-03 19:30] VITALS: PULSE 78; RESP 16; O2SAT 97
[2022-11-03] MEDS: Ipratropium/Albuterol Sulfate 3 ML AMPUL.NEB INHALATION (19:30)
[2022-11-03] MEDS: MELATONIN 3 MG TABLET PO (21:48)
[2022-11-03 21:52] VITALS: BP 138/73; PULSE 72; RESP 16; TEMP 36.4; O2SAT 98
[2022-11-03 22:36] VITALS: O2SAT 95
[2022-11-04] MEDS: Senna Tablet 2 TABLET PO (05:29)
[2022-11-04] MEDS: APIXABAN 2.5 MG TABLET (WCH) PO (05:29)
[2022-11-04] MEDS: Lidocaine 5% Patch 1 PATCH TOPICAL (05:29)
[2022-11-04] MEDS: Acetaminophen 500 MG Tablet 1000 MG PO (05:34)
[2022-11-04 06:45] VITALS: PULSE 74; RESP 16
[2022-11-04] MEDS: Ipratropium/Albuterol Sulfate 3 ML AMPUL.NEB INHALATION (06:45)
[2022-11-04] MEDS: oxyCODONE 5 MG Tablet PO (09:13)
[2022-11-04 10:00] VITALS: BP 152/76; PULSE 81; RESP 16; TEMP 36.6; O2SAT 98
--- NOTE | 2022-11-05 14:30 | MDS.RN ---
Information for the mds was obtained from review of the clinical record, interview of resident, staff, and direct observation of resident's care.
== END 2022-11-04 10:08 | disposition home health service (06) | DRG 949 ==
PROVIDERS: Admitting Provider Family Medicine Geriatric Medicine; PCP Internal Medicine; Visit Provider Family Medicine Geriatric Medicine
DX: S06.6X0D Traumatic subarachnoid hemorrhage without loss of consciousness, subsequent encounter (principal); B37.0 Candidal stomatitis; I82.462 Acute embolism and thrombosis of left calf muscular vein; J30.9 Allergic rhinitis, unspecified; F41.9 Anxiety disorder, unspecified; K64.9 Unspecified hemorrhoids; Z79.01 Long term (current) use of anticoagulants; S32.011D Stable burst fracture of first lumbar vertebra, subsequent encounter for fracture with routine healing; Z79.899 Other long term (current) drug therapy; W14.XXXD Fall from tree, subsequent encounter; S32.020D Wedge compression fracture of second lumbar vertebra, subsequent encounter for fracture with routine healing; S22.040D Wedge compression fracture of fourth thoracic vertebra, subsequent encounter for fracture with routine healing; S22.050D Wedge compression fracture of T5-T6 vertebra, subsequent encounter for fracture with routine healing; S22.42XD Multiple fractures of ribs, left side, subsequent encounter for fracture with routine healing; S27.329D Contusion of lung, unspecified, subsequent encounter
CPT/HCPCS: 36415; 80048; 85025; 92526; 92610; 94640; 97110; 97116; 97162; 97166; 97530; 97535; 97537; 97802

== ENCOUNTER 2023-01-20 08:30 | Outpatient (RCR) | payer MEDICARE, SELFPAY ==
--- NOTE | 2022-12-18 17:53 | HP.PTEVAL_ITS ---
Patient's Visit Information Visit Information Visit Information: PATY FERRER is a 82 year old F referred to Physical Therapy by IDANIA Patel with a diagnosis of L rib Fx thoracic compression fx and L2 compression fx. Date of Evaluation: 12/18/22 Physical Therapist: JUAN A Hubbard Visit Plan Frequency: 2x /Week Duration: 6 Weeks Plan: 2X/ week for 4-6 weeks for NEUTRAL SPINE core stability, postural exercises, LE strength, gait training, functional training with HEP Subjective Subjective: Pt fell off a ladder on she got L rib Fx thoracic compression fx and L2 compression Fx. She also hurt her L shoulder but that does not hurt anymore. She fell October 09. She was in the hospital for 2 weeks and then went into transitional rehab. She did have a little bit of bleeding in the brain but that is healed and she did have a blood clot in her leg but that is gone. She is still on eloquist and has some swelling in the leg She feels very weak. She back at home. She lives alone. She has no steps. She is only taking Tylenol. Use the walk in shower. She does not roll over in bed... did not feel comfortable rolling onto her side. She gets more tired quick. She goes to Dr Martell for shot for compression fx. She is off Elliquest now for 5 days now. When she lays down flat she gets a little pain along the ribs. Pain back pain: Pain Intensity (Out of 10): 0 Rib pain: Pain Intensity (Out of 10): 0 Objective Objective: Gait: walks with short strides and decreased arm swing and flexed posture. Pt struggled going sit to supine and she was not able to get all the way down to her back due to pain and she was not able to lay on her R side due to pain wither LE MMT: R hip flex 14.3 and L hip flex 13.3 R knee ext 17.5 and L 16.1 R knee flex 11.2 and L 12.6 Side stepping and BW walking she was able to do with CGA Sit to stand: uses arms to get up out of a chair on first attempt Stairs: Pt is able to go up and down the stairs with one hand rail ( going down she likes to go down with the R leg first but on command she will use her L and go recip). Ascending the stairs she goes up with ease recip standing heel and toe raises: able X 10 each direction with slight touch on the table for balance Balance/Special Test Scores Oswestry Low Back Score: 23 Goals Goal 1:: I HEP Goal Time Frame: 6-8 Weeks Goal 2:: Increase LE strength (at time of the eval: LE MMT: R hip flex 14.3 and L hip flex 13.3 R knee ext 17.5 and L 16.1 R knee flex 11.2 and L 12.6). Goal Time Frame: 6-8 Weeks Goal 3:: Be able go from sit to supine and roll to her side without pain Goal Time Frame: 6-8 Weeks Goal 4:: Be able to walk with more confidence with increase arm swing and upright posture Goal Time Frame: 6-8 Weeks Rehabilitation Potential Rehabilitation Potential: Good Anticipated Interventions Patient/Client Instruction: Educate patient on: Condition and Plan of Care For the Purpose of:: To decrease pain, To increase ROM, To improve nutrient delivery to tissue, To improve muscle performance and motor function, To improve ability to perform ADL's, To increase tolerance to activity/condition/position, To improve performance and independence with ADL's, To decrease level of supervision to perform tasks, To improve ability of physical actions for home/community/work/leisure, To improve gait and locomotor functions, To improve health of tissue, To decrease soft tissue restriction, To improve endurance, To improve balance and To improve safety with gait Therapeutic Exercise to Include: Strength training, Endurance training, Postural training, Flexibilty training, Gait and locomotor training, Neuromotor development, Active ROM, Dynamic Lumbar Stabilization and Scapular Strength/Stabilization For the Purpose of:: To decrease pain, To increase ROM, To improve nutrient delivery to tissue, To improve muscle performance and motor function, To improve ability to perform ADL's, To increase tolerance to activity/condition/position, To improve performance and independence with ADL's, To decrease level of supervision to perform tasks, To improve gait and locomotor functions, To improve health of tissue, To decrease soft tissue restriction, To increase flexibility/ROM, To improve endurance, To improve balance and To improve safety with gait Functional Training to Include: Gait training For the Purpose of:: To improve gait and locomotor functions Text: Thank you for the opportunity to evaluate your patient. For Medicare and Medicare HMO plans, please review the plan of care and approve it. It will need to be FAXED BACK to us at [phone] for Medicare purposes. For Medicare only, by signing this I certify the plan of care. Please let me know if there are questions or concerns regarding this plan of care. Physician Signature: Da te:
--- NOTE | 2023-01-20 08:54 | HP.PTDCSUM ---
Discharge Summary D/C summary: It has been my pleasure to treat PATY FERRER referred by IDANIA Patel, with the diagnosis of L rib Fx thoracic compression fx and L2 compression fx for a total of 8 visit(s). Discharge Date: 01/20/23 Please see the following information for a summary of their discharge status. Subjective Subjective: Pt reports that she is back to doing things and likes to over do things. She lifted a big jug of laundry detergent and forgot how heavy they are. She has to learn to be more careful. She reports that she is still tired though and is more cautious cause she does not want to hurt her back. Pain back pain: Pain Intensity (Out of 10): 0 Rib pain: Pain Intensity (Out of 10): 0 Overall Improvement % Improvement: 80 Objective Objective/Function: MMT: R hip flex 17.7 and L hip flex 16.4 R knee ext 18.5 and L 19.4 R knee flex 15.5 and L 14.4 Gait: Walks with more confidence, still decrease stride length Goals Goal 1:: I HEP Goal Progress: Goal Met Goal 2:: Increase LE strength (at time of the eval: LE MMT: R hip flex 14.3 and L hip flex 13.3 R knee ext 17.5 and L 16.1 R knee flex 11.2 and L 12.6). Goal Progress: Goal Met Goal 3:: Be able go from sit to supine and roll to her side without pain Goal Progress: Goal Met Goal 4:: Be able to walk with more confidence with increase arm swing and upright posture Goal Progress: Goal Met Plan Plan: DC PT to HEP D/C Information Discharge Comments: DC PT to HEP d/c sentence: If there are questions or concerns regarding this patient's physical therapy, please feel free to call me at [phone]. Thank you for the referral of this patient. Sincerely, Angela Crawford, MPT Balance/Gait/Functional tests Balance/Special Test Scores Oswestry Low Back Score: 1 Improvement % Improvement: 80
== END 2023-01-20 09:53 | disposition home or self-care (01) ==
LOC: PT 08:30
PROVIDERS: PCP Internal Medicine; Referring Provider Internal Medicine; Visit Provider Internal Medicine
DX: S22.42XD Multiple fractures of ribs, left side, subsequent encounter for fracture with routine healing (principal); S22.000D Wedge compression fracture of unspecified thoracic vertebra, subsequent encounter for fracture with routine healing; S32.020D Wedge compression fracture of second lumbar vertebra, subsequent encounter for fracture with routine healing
CPT/HCPCS: 97110; 97161; 97530

== ENCOUNTER 2023-03-10 08:31 | Emergency (ER) | payer MEDICARE, SELFPAY ==
[2023-03-10 08:32] VITALS: BP 146/73; PULSE 82; RESP 16; TEMP 36.2; O2SAT 99; BMI 20.2
--- NOTE | 2023-03-10 08:49 | VDLE_ITS ---
Reason For Study: Pain BLE RIGHT LEFT GSV is normal. GSV is normal. CFV is compressible, spontaneous, phasic, CFV is compressible, spontaneous, phasic, competent and demonstrates normal competent, and demonstrates normal augmentation. augmentation. FV is compressible, spontaneous, phasic, FV is compressible, spontaneous, phasic, competent and demonstrates normal competent and demonstrates normal augmentation. augmentation. POP V is compressible, spontaneous, phasic, POP V is compressible, spontaneous, phasic, competent and demonstrates normal competent and demonstrates normal augmentation. augmentation. T/P Trunk is compressible. T/P Trunk is compressible. PTV is compressible. PTV is compressible. RT PerV is compressible. LT PerV is compressible. Procedure This is a venous duplex using B-mode, color flow and spectral Doppler. Exam performed portable in ED. A preliminary report was called and/or faxed to Dr. Elmore. VL/Venous Duplex US - Dhaval Extrem Interpretation Summary Deep veins of the lower extremities are bilaterally patent and compressible seg mentally. There is no evidence of deep vein thrombosis on either side. Valvular competence appears in tact within the proximal deep venous systems bilaterally. The great saphenous veins appear bila terally patent and compressible segmentally. Ordering Physician: Wiliam Elmore Referring Physician: Frannie Butcher Performed By: Jess Cortez, MAHAMED, RVT
--- NOTE | 2023-03-10 09:01 | EX.ED.DYSGE1 ---
HPI History of Present Illness Chief Complaint: Lower Extremity Injury Informant: patient and family Narrative Narrative: Patient presents with foot pain. History is through patient and her daughter. Patient has been having foot pain off and on for months. She states some days the right foot hurts some days the left foot hurts and some days both hurt. Patient has had no acute injury recently. She also had a DVT after her fall earlier this year. She was on Eliquis until about October. She had been told that her left foot pain was probably coming from the Eliquis for the blood clots but it has not gone away off the meds. She has had an ultrasound a few months ago that showed no residual clot. She denies any back pain or radicular pain. She has no weakness. She states the pain is better if she walks. [facility] Medical History Closed L1 vertebral fracture Compression fracture of L2 Compression fracture of T4 vertebra Compression fracture of T6 vertebra Diverticulosis Fall Hemorrhoids Left leg DVT Lung contusion Multiple rib fractures SAH (subarachnoid hemorrhage) Home Medications cetirizine 5 mg tablet 5 mg PO DAILY allergies 10/25/22 [History Last Taken Unknown] polyethylene glycol 3350 17 g PO/SL DAILY bowels 10/25/22 [History Last Taken Unknown] acetaminophen 500 mg tablet 1,000 mg (2 x 500 mg) PO Q8 #0 tabs 11/01/22 [Rx Last Taken Unknown] lidocaine 5 % topical patch 1 patch topical DAILY 30 days #30 ea 11/01/22 [Rx Last Taken Unknown] sennosides 8.6 mg tablet (senna) 2 tab PO BID 30 days #120 tabs 11/01/22 [Rx Last Taken Unknown] simethicone 80 mg chewable tablet 80 mg PO PCHS PRN Gas 30 days #120 tabs 11/01/22 [Rx Last Taken Unknown] Allergy/AdvReac Type Severity Reaction Status Date / Time aspirin [From Aggrenox] Allergy Unknown Verified 03/10/23 08:34 balsam annie Allergy NEEDS Verified 03/10/23 08:34 FOLLOW-UP cephalexin Allergy Unknown Verified 03/10/23 08:34 dipyridamole [From Aggrenox] Allergy Unknown Verified 03/10/23 08:34 estrogens,esterified Allergy Unknown Verified 03/10/23 08:34 [From Estratest] ethylenediamine Allergy Unknown Verified 03/10/23 08:34 latex Allergy Unknown Verified 03/10/23 08:34 methyltestosterone Allergy Unknown Verified 03/10/23 08:34 [From Estratest] neomycin Allergy Unknown Verified 03/10/23 08:34 omeprazole Allergy Other Verified 03/10/23 08:34 potassium Allergy Unknown Verified 03/10/23 08:34 simvastatin [From Zocor] Allergy Unknown Verified 03/10/23 08:34 spectinomycin Allergy Unknown Verified 03/10/23 08:34 streptomycin Allergy Unknown Verified 03/10/23 08:34 Sulfa (Sulfonamide Allergy NEEDS Verified 03/10/23 08:34 Antibiotics) FOLLOW-UP sulfamethoxazole Allergy Unknown Verified 03/10/23 08:34 [From Bactrim] thimerosal Allergy Unknown Verified 03/10/23 08:34 trimethoprim [From Bactrim] Allergy Unknown Verified 03/10/23 08:34 amoxicillin AdvReac Diarrhea Verified 03/10/23 08:34 Surgical History History of hysterectomy Social History household members: none Smoking Status: Never smoker alcohol intake: never substance use type: does not use ROS ROS ED ROS Narrative A complete review of systems was performed and is negative except as documented in the history of present illness. Some specific details below. Constitutional: No recent fevers or chills. No malaise. EYE: No visual complaint ENT: No difficulty swallowing. No swelling. No pain. CV: No chest pain or palpitations. Respiratory: No dyspnea. No hemoptysis. No difficulty taking breaths. GI: Please see history of present illness. : No frequency dysuria or hematuria. Musculoskeletal: No recent trauma. See history of present illness. Skin: No rash. Nondiaphoretic. Neuro: No weakness or numbness. Endocrine: No polyuria or polydipsia. EXAM Physical Exam Narrative Exam Narrative: General: Patient awake alert sitting on bed looks comfortable. HEENT shows no trauma. Mucous membranes are moist. Eyes show no pallor. Heart is regular. I hear no ectopy or irregular beats. No murmur. Lungs are clear bilaterally. Abdomen is benign no bruit is heard. Extremities show no edema. She does have prominent veins but she is quite thin and she has prominent veins throughout her body. The right foot is the one that is bothering her today. She does say it alternates. The great toe has a very small paronychia but the redness and small amount of purulence is very localized. But her pain is generalized. I do not think this is the source of her pain. Const Vital Signs: 03/10/23 08:32 Temperature 97.2 F L Temperature Source Temporal Pulse Rate 82 Respiratory Rate 16 Blood Pressure 146/73 H Blood Pressure Mean 97 Pulse Ox 99 Oxygen Delivery Method Room Air MDM MDM MDM Narrative Medical decision making narrative: Her history is more consistent with neuropathy. It tends to bother her more at night. It is better if she gets up and walks. I did do a bedside Doppler just to listen to her pulses. She has strong biphasic almost triphasic pulses in dorsalis pedis and posterior tibial of both feet. They are equal. I have ordered duplex study. Repeat port is negative for any DVT. Procedure: Drainage of small paronychia right great toe I discussed risk benefits. I do not think this is worth doing digital anesthesia. The area over the paronychia was cleaned. It was in the center of the nail not on one side. It was a very small pustule about 1-1/2 x 4 mm. After cleaning, we used an 11 blade to just regan into the surface and cut across it. We got some drainage of purulent material. We discussed how to care for it. No bleeding. She tolerated this well. Patient will follow-up with her primary physician. She is up walking around and feels better walking. I think her symptoms are likely a neuropathy. I think it is appropriate her private physician follows her for possible treatment. If we start on gabapentin that we will need likely frequent dosage adjustments. We would have to start very low because of her age and small size. I think this is better done outpatient. Discharge Plan Triage Chief Complaint: Lower Extremity Injury ED Provider: Wiliam Elmore Dx/Rx/DC Orders Clinical Impression: Neuropathy of both feet, History of compression fracture of spine, Paronychia of great toe, right Instructions: What Is Peripheral Neuropathy, ED Paronychia of the Finger or Toe Prescriptions: No Action cetirizine 5 mg Tablet 5 mg PO DAILY polyethylene glycol 3350 17 g PO/SL DAILY sennosides [senna] 8.6 mg Tablet 2 tab PO BID 30 Days Qty: 120 0RF acetaminophen 500 mg Tablet 1,000 mg PO Q8 Qty: 0 0RF lidocaine 5 % Adhesive Patch,Medicated 1 patch topical DAILY 30 Days Qty: 30 0RF simethicone 80 mg Tablet,Chewable 80 mg PO PCHS PRN (Reason: Gas) 30 Days Qty: 120 0RF Primary Care Provider: Frannie Butcher Referrals: Frannie Butcher MD [Primary Care Provider] - As soon as possible Disposition Disposition: Home, Self Care
[2023-03-10 11:10] VITALS: BP 138/74; PULSE 62; RESP 15; O2SAT 95
== END 2023-03-10 11:11 | disposition home or self-care (01) ==
PROVIDERS: Emergency Provider Emergency Medicine; PCP Internal Medicine; Visit Provider Emergency Medicine
DX: L03.031 Cellulitis of right toe (principal); G62.9 Polyneuropathy, unspecified; Z86.718 Personal history of other venous thrombosis and embolism; Z87.81 Personal history of (healed) traumatic fracture
CPT/HCPCS: 10060; 93970; 99282